=== PATIENT | male | born 1995 | race Two or more races ===

== ENCOUNTER 2017-04-18 01:13 | Emergency (ER) | payer SELFPAY ==
[~2017-04-18] VITALS: Ht 170.2 cm; Wt 57.2 kg
[2017-04-18 01:32] VITALS: BP 123/52
[2017-04-18] MEDS ORDERED: AMOX500C PO (01:47)
[2017-04-18] MEDS ORDERED: NAPR500T PO (01:47)
--- NOTE | 2017-04-18 01:47 | PHYS DOC ---
Past Medical History Past Medical History: No Pertinent History Past Surgical History: No Surgical History Smoking: Cigarettes Alcohol Use: Occasionally Drug Use: None Adult General Chief Complaint Chief Complaint: DENTAL PROBLEM HPI HPI Patient is a 21 year old male who presents with dental pain. He has pain to the right lower back tooth. He started yesterday. No recent travel. No fever sore throat cough or difficult breathing. He does not have a dentist. No drooling. No difficulty swallowing. Review of Systems Review of Systems Constitutional: Denies fever or chills HENT: Denies nasal congestion or sore throat; POS dental pain Current Medications Current Medications Current Medications Medications (Trade) Dose Ordered Sig/Donald Start Time Stop Time Status Last Admin Dose Admin Amoxicillin (Amoxil) 500 mg 1X ONCE 04/18/17 01:45 04/18/17 01:46 UNV Naproxen (Naprosyn) 500 mg 1X ONCE 04/18/17 01:45 04/18/17 01:46 UNV Allergies Allergies Allergies Coded Allergies Type Severity Reaction Last Updated Verified No Known Drug Allergies 04/18/17 No Physical Exam Physical Exam Constitutional: Well developed, well nourished, no acute distress, non-toxic appearance. HENT: Normocephalic, atraumatic, bilateral external ears normal, oropharynx moist, no oral exudates, nose normal. Patient's complaint of right lower third molar. There is a amalgam filling noted. No buccal space swelling, no rhys- apical swelling, no drainage. Neck: Normal range of motion, no tenderness, supple, no stridor. Car: Heart rate normal, no murmur detected. Neurologic: Alert and oriented X 3, normal motor function, normal sensory function, no focal deficits noted. Current Patient Data Vital Signs Vital Signs Date Time Temp Pulse Resp B/P (MAP) Pulse Ox O2 Delivery O2 Flow Rate FiO2 04/18/17 01:32 98.5 73 16 98 Room Air 98.5 Course & Med Decision Making Course & Med Decision Making K tracs shows no recent activity. Dosed here with amoxicillin and Naprosyn. Given dental clinic referrals. I have spoken with the patient and/or caregivers. I have explained the patient' s condition, diagnosis and treatment plan based on the information available to me at this time. I have answered the patient's and/or caregiver's questions and addressed any concerns. The patient and/or caregivers have as good an understanding of the patient's diagnosis, condition and treatment plan as can be expected at this point. The patient's condition is stable and appropriate for discharge from the emergency department. The patient will pursue further outpatient evaluation with the primary care physician or other designated or consulting physician as outlined in the discharge instructions. The patient and/or caregivers are agreeable to this plan of care and follow-up instructions have been explained in detail. The patient and/or caregivers have received these instructions in written format and have expressed an understanding of the discharge instructions. The patient and/or caregivers are aware that any significant change in condition or worsening of symptoms should prompt an immediate return to this or the closest emergency department or a call to 911. Dragon Disclaimer Dragon Disclaimer This electronic medical record was generated, in whole or in part, using a voice recognition dictation system. Departure Departure Impression: Primary Impression: Pain, dental Disposition: HOME, SELF-CARE Condition: STABLE Patient Instructions: Dental Caries Additional Instructions: You were given a sheet of dental clinic referrals. His call first thing in the morning for definitive treatment. Scripts Naproxen (NAPROSYN) 500 Mg Tablet 500 MG PO BID, #20 TAB Prov: YAHIR CARLISLE MD 04/18/17 Amoxicillin (AMOXICILLIN) 500 Mg Capsule 1 CAP PO TID, #30 CAP Prov: YAHIR CARLISLE MD 04/18/17 YAHIR CARLISLE MD Apr 18, 2017 01:47
[2017-04-18] MEDS ORDERED: AMOXICILLIN 250 MG CAPSULE. PO ONE (02:00)
[2017-04-18] MEDS ORDERED: NAPROXEN 500 MG TABLET PO ONE (02:00)
== END 2017-04-18 01:55 | disposition home or self-care (01) ==
LOC: ER 01:13
DX: K08.89 Other specified disorders of teeth and supporting structures (principal); F17.210 Nicotine dependence, cigarettes, uncomplicated
CPT/HCPCS: 99283